=== PATIENT | male | born 1960 | race Two or more races ===

== ENCOUNTER 2018-06-28 14:13 | Emergency (ER) | payer SELFPAY ==
[~2018-06-28] VITALS: Ht 175.3 cm; Wt 73.0 kg
[~2018-06-28 14:13] MED LIST: IBUP-1653 PO
[2018-06-28] MEDS ORDERED: NAPROXEN 375MG TABLET PO ONE (16:00)
[2018-06-28 17:17] LABS: BASOPHILS % 0.4 % (0.0-2.0); EOSINOPHILS % 0.9 % (0.0-5.0); HEMATOCRIT. 43.3 % (42.0-52.0); HEMOGLOBIN. 14.4 g/dL (14.0-18.0); LYMPHOCYTES % 56.5 % (20.0-50.0); MEAN CORPUSCULAR HEMOGLOBIN 28.8 pg (28.0-32.0); MEAN CORPUSCULAR VOLUME 86.8 fL (80.0-94.0); MEAN PLATELET VOLUME 9.1 fl (7.4-10.4); MONOCYTES % 8.6 % (2.0-8.0); NEUTROPHILS % 33.6 % (40.0-76.0); PLATELET 208 x1000/uL (130-400); RED BLOOD CELL COUNT 4.98 mill/uL (4.7-6.1); RED CELL DISTRIBUTION WIDTH 15.4 % (11.6-14.6)
[2018-06-28 17:19] LABS: CHLORIDE 106 mEq/L (98-107)
[2018-06-28 18:58] VITALS: BP 124/69
== END 2018-06-28 19:00 | disposition home or self-care (01) ==
LOC: ER 14:13
DX: M25.542 Pain in joints of left hand (principal); M25.541 Pain in joints of right hand; J45.909 Unspecified asthma, uncomplicated; F12.10 Cannabis abuse, uncomplicated; F17.200 Nicotine dependence, unspecified, uncomplicated
CPT/HCPCS: 36415; 73130; 99284